=== PATIENT | female | born 1970 | race Caucasian/White ===

== ENCOUNTER 2019-07-30 07:19 | Inpatient (IN) | payer OTHER ==
[~2019-07-30] VITALS: Ht 165.1 cm; Wt 61.0 kg
[2019-07-30 08:11] VITALS: BP 118/78
[2019-07-30 12:31] VITALS: BP 93/65
[2019-07-30 15:21] LABS: PLATELET COUNT 244 x10^3mcL (130-400)
[2019-07-30 15:51] LABS: RED CELL DISTRIBUTION WIDTH 22.2 % (11.5-14.5)
[2019-07-30 16:33] LABS: BAND NEUTROPHIL 8 % (0-10); METAMYELOCTE 4 % (0-2); MONOCYTE 7 % (0-7); SEGMENTED NEUTROPHILS 77 % (37-75)
[2019-07-30 16:35] LABS: rbc morphology (normal/abnorm) ABNORMAL (NORMAL)
[2019-07-30 16:36] LABS: PLATELET MORPHOLOGY PLATELETS NORMAL
[2019-07-30 17:32] VITALS: BP 88/58
[2019-07-30 18:40] VITALS: BP 112/84
[2019-07-30 20:43] VITALS: BP 109/89
[2019-07-30 23:24] LABS: PLATELET COUNT 183 x10^3mcL (130-400)
[2019-07-30 23:25] LABS: BASOPHIL % 0 % (0-2); RED CELL DISTRIBUTION WIDTH 21.6 % (11.5-14.5)
[2019-07-31 05:04] VITALS: BP 120/77
[2019-07-31 06:55] LABS: BASOPHIL % 0.4 % (0-2); PLATELET COUNT 158 x10^3mcL (130-400)
[2019-07-31 07:26] LABS: RED CELL DISTRIBUTION WIDTH 21.5 % (11.5-14.5)
[2019-07-31 09:51] LABS: ovalocyte/elliptocyte 1+; rbc morphology (normal/abnorm) ABNORMAL (NORMAL)
[2019-07-31 10:07] VITALS: BP 126/76
[2019-07-31 16:43] VITALS: BP 110/67
[2019-07-31 20:45] VITALS: BP 119/72
[2019-08-01 03:22] LABS: BASOPHIL % 1.2 % (0-2); PLATELET COUNT 132 x10^3mcL (130-400)
[2019-08-01 03:32] LABS: RED CELL DISTRIBUTION WIDTH 17.8 % (11.5-14.5)
[2019-08-01 05:53] VITALS: BP 113/75
[2019-08-01 08:39] VITALS: BP 107/67
[2019-08-01 12:36] LABS: BASOPHIL % 0.4 % (0-2)
[2019-08-01 12:43] LABS: PLATELET COUNT 124 x10^3mcL (130-400); RED CELL DISTRIBUTION WIDTH 17.5 % (11.5-14.5)
[2019-08-01 16:25] VITALS: BP 114/68
[2019-08-01 20:16] VITALS: BP 132/75
[2019-08-02 05:22] VITALS: BP 120/73
[2019-08-02 07:39] VITALS: BP 117/71
[2019-08-02 08:06] LABS: BASOPHIL % 0.3 % (0-2); PLATELET COUNT 145 x10^3mcL (130-400)
[2019-08-02 08:15] LABS: RED CELL DISTRIBUTION WIDTH 16.8 % (11.5-14.5)
[2019-08-02 10:04] VITALS: BP 117/71
== END 2019-08-02 14:00 | disposition home or self-care (01) | DRG 519 ==
LOC: MU 07:19 → DU 09:00 → MU 11:10
PROVIDERS: ADMIT Obstetrics & Gynecology
PROC: 0UT20ZZ Resection of Bilateral Ovaries, Open Approach (ICD-10-PCS; 2019-07-30)
PROC: 0UT70ZZ Resection of Bilateral Fallopian Tubes, Open Approach (ICD-10-PCS; 2019-07-30)
PROC: 0UT90ZL Resection of Uterus, Supracervical, Open Approach (ICD-10-PCS; principal; 2019-07-30 09:00)
PROC: 30233N1 Transfusion of Nonautologous Red Blood Cells into Peripheral Vein, Percutaneous Approach (ICD-10-PCS; 2019-07-31)
DX: D25.9 Leiomyoma of uterus, unspecified (principal); E03.9 Hypothyroidism, unspecified
CPT/HCPCS: G0378; J0330; J0690; J1170; J1940; J2250; J2270; J2405; J2704; J2710; J3010; J3490; J7030; J7040; J7120; P9016; Q0163